=== PATIENT | female | born 1985 ===

== ENCOUNTER 2018-09-17 00:07 | Emergency (ER) | payer SELFPAY ==
[2018-09-17 00:28] VITALS: RESP 18
--- NOTE | 2018-09-17 01:11 | ED PDOC ---
HPI: Skin/Bite Injury Time Seen by Provider: 09/17/18 00:30 Chief Complaint (Nursing): Breast Problem Chief Complaint (Provider): left breast pain History Per: Patient History/Exam Limitations: no limitations Onset/Duration Of Symptoms: Days (3) Current Symptoms Are (Timing): Still Present Quality Of Symptoms: Painful Additional Complaint(s): 33 y/o female presents for evaluation of left breast pain and swelling x 3 days. Associated tactile fevers, states last dose Tylenol was 15:00 yesterday. Patient states she had similar symptoms one month ago (under [id number]) and was admitted here for breast abscess which was drained by surgery. Denies nausea/vomiting, nipple discharge. Past Medical History Reviewed: Historical Data, Nursing Documentation, Vital Signs Vital Signs: Last Vital Signs Temp 98.5 F 09/17/18 00:26 Pulse 81 09/17/18 00:26 Resp 18 09/17/18 00:26 BP 111/60 09/17/18 00:26 Pulse Ox 100 09/17/18 00:26 - Medical History PMH: No Chronic Diseases - Family History Family History: States: No Known Family Hx - Living Arrangements Living Arrangements: With Family - Home Medications Home Medications: Ambulatory Orders Medication Instructions Recorded Amoxicillin/Clavulanate [Augmentin 1 tab PO Q12 #20 tab 09/17/18 875 MG-125 MG] oxyCODONE/Acetaminophen [Percocet 1 ea PO Q6 PRN #10 tab 09/17/18 5/325 mg Tab] - Allergies Allergies/Adverse Reactions: Allergies Allergy/AdvReac Type Severity Reaction Status Date / Time No Known Allergies Allergy Verified 09/17/18 00:26 Review of Systems ROS Statement: Except As Marked, All Systems Reviewed And Found Negative Skin: Positive for: Other (left breast pain) Physical Exam - Reviewed Nursing Documentation Reviewed: Yes Vital Signs Reviewed: Yes - Physical Exam Appears: Positive for: Well, Non-toxic, No Acute Distress Head Exam: Positive for: ATRAUMATIC, NORMAL INSPECTION, NORMOCEPHALIC Skin: Positive for: Rash (Moderate swelling to left breast compared to right, with tenderness to palpate in 9:00-12:00 positions with + erythema, warmth. No fluctuance. No nipple discharge/retraction, orange-peel appearance. Normal- apearing right breast) Eye Exam: Positive for: Normal appearance ENT: Positive for: Normal ENT Inspection Cardiovascular/Chest: Positive for: Regular Rate, Rhythm Respiratory: Positive for: Normal Breath Sounds Gastrointestinal/Abdominal: Positive for: Normal Exam Back: Positive for: Normal Inspection Extremity: Positive for: Normal ROM Neurologic/Psych: Positive for: Alert, Oriented (x3) - Laboratory Results Result Diagrams: 09/17/18 02:11 09/17/18 02:11 - ECG O2 Sat by Pulse Oximetry: 100 - Progress ED Course And Treament: -cbc -cmp -lactic acid -blood cx -Toradol 15mg IV -left breast u/s Ultrasound of the left breast. Indication: Suspected abscess formation. Technique: Real-time ultrasound images were obtained. Findings: 9.1x8.3x6 cm abscess formation is noted in the left breast at the site of the palpable clinical abnormality. Impression: Abscess formation as above IV zosyn dose ordered Patient evaluated by Dr. Garcia, surgical coordinator on-call, bedside I&D performed. Recommends d/c with antibiotics, pain medication and follow up with Dr. Sutton in one week. Disposition - Clinical Impression Clinical Impression: Abscess of breast - Patient ED Disposition Is Patient to be Admitted: No Counseled Patient/Family Regarding: Studies Performed, Diagnosis, Need For Followup, Rx Given - Disposition Referrals: Luis Sutton MD [Staff Provider] - Disposition: Routine/Home Disposition Time: 05:09 Condition: IMPROVED Prescriptions: Amoxicillin/Clavulanate [Augmentin 875 MG-125 MG] 1 tab PO Q12 #20 tab oxyCODONE/Acetaminophen [Percocet 5/325 mg Tab] 1 ea PO Q6 PRN #10 tab PRN Reason: Pain, Severe (8-10) Instructions: Abscess Incision and Drainage Forms: [employer] (Canadian)
[2018-09-17 02:16] LABS: BASO % 0.2 % (0.0-2.0); EOS % 0.6 % (0.0-4.0); HEMOGLOBIN 10.1 g/dL (12.0-16.0); LYMPH # 1.3 K/uL (1.0-4.3); LYMPH % 20.1 % (20.0-40.0); MEAN CELL VOLUME 85.5 fl (81.0-99.0); MEAN CORPUSCULAR HGB CONC 32.8 g/dL (33.0-37.0); MEAN PLATELET VOLUME 9.1 fl (7.2-11.7); MONO # 0.5 K/uL (0.0-0.8); MONO % 8.1 % (0.0-10.0); NEUT # 4.5 K/uL (1.8-7.0); NRBC % 0.1 % (0.0-0.0); RBC 3.62 Mil/uL (3.80-5.20); RED CELL DISTRIBUTION WIDTH 14.2 % (11.5-14.5); WHITE BLOOD COUNT 6.3 K/uL (4.8-10.8)
[2018-09-17 02:23] LABS: ALB/GLOB RATIO 1.2 (1.0-2.1); ALT/SGPT 25 U/L (9-52); AST/SGOT 21 U/L (14-36); BLOOD UREA NITROGEN 16 mg/dl (7-17); CALCIUM 8.8 mg/dL (8.4-10.2); GFR NON-AFRICAN AMERICAN > 60
[2018-09-17] MEDS ORDERED: Piperacillin/Tazobact 3.375 GM in Sodium Chloride 0.9% 100 ML IV ONE (03:21)
[2018-09-17] MEDS ORDERED: HYDROmorphone 0.5 mg/0.5 ml ISec IVP STA (04:05)
[2018-09-17] MEDS ORDERED: Lidocaine 1% Inj (20ml) IJ ONE (04:06)
[2018-09-17] MEDS ORDERED: Piperacillin/Tazobact 3.375 gm Inj IVPB ONE (05:19)
--- NOTE | 2018-09-17 06:13 | PCM.PROC ---
- Incision & Drainage Of Abscess Anesthesia: Lidocaine 2% Used During Procedure: Continuous Pulse Oximetry, Bookstore Clerk, Oxygen Prep Used: Sterile Water, Betadine Procedure: Incised W/Scalpel Blade#: (11), Drained Pus (300cc ), Irrigated Cavity W/Saline, Probed To Break Up Loculations (on 9 o clock position 5cm from the nipple on the L breast), Packed W/Gauze, Cultures Obtained And Sent To Lab
[2018-09-17 06:43] VITALS: BP 100/58; PULSE 62; TEMP 97.8; O2SAT 97
--- NOTE | 2018-09-17 09:58 | US ---
Date of service: 09/17/2018 PROCEDURE: Diagnostic left breast ultrasound examination HISTORY: pain, swelling h/o abscess COMPARISON: Not available TECHNIQUE: Targeted ultrasound examination of left breast performed in the area of palpable abnormality and tenderness, in the medial half of the breast FINDINGS: There is a complex fluid collection measuring 6.0 x 8.3 x 9.1 cm with intermediate level internal echoes and peripheral hypervascularity. Findings consistent with abscess. Consider percutaneous drainage. No solid mass identified. No additional abnormality demonstrated. IMPRESSION: Findings consistent with 9.1 cm abscess in the medial half of left breast. Consider percutaneous drainage. The preliminary findings for this examination were reported by [facility] at 3:19 a.m. on 09/17/2018. There is concurrence of this report with the preliminary findings.
== END 2018-09-17 06:52 | disposition home or self-care (01) ==
LOC: H.ER 00:07
DX: N61.1 Abscess of the breast and nipple (principal)
CPT/HCPCS: 10060; 76641; 80053; 83605; 85025; 87040; 87070; 96374; 96375; 99283; J1885; J2543

== ENCOUNTER 2018-10-18 16:58 | Emergency (ER) | payer SELFPAY ==
[2018-10-18 17:30] VITALS: RESP 18
--- NOTE | 2018-10-18 18:03 | ED PDOC ---
HPI: Skin/Bite Injury Time Seen by Provider: 10/18/18 17:35 Chief Complaint (Nursing): Abnormal Skin Integrity Chief Complaint (Provider): left breast pain and swelling History Per: Patient History/Exam Limitations: no limitations Onset/Duration Of Symptoms: Days Current Symptoms Are (Timing): Still Present Additional Complaint(s): 33 y/o female presents for evaluation of left breast pain and swelling x 1 week. Associated subjective fevers. Patient states she had similar symptoms in August 2018 (under [id number]) and was admitted here for breast abscess which was drained by surgery and was again seen on 09/17/18 and had abscess drainage by surgical consult. She states the breast was soft and redness had gone away but returned over the past week. Denies nausea/vomiting, discharge from breast. States that the pain is increasing and that she just finished her last dose of antibiotics yesterday. The redness is further down than it has been in the past. Denies hx of breast Ca. Past Medical History Reviewed: Historical Data, Nursing Documentation, Vital Signs Vital Signs: Last Vital Signs Temp 98 F 10/18/18 17:28 Pulse 70 10/18/18 17:28 Resp 18 10/18/18 17:28 BP 115/44 L 10/18/18 17:28 Pulse Ox 99 10/18/18 17:28 - Medical History PMH: No Chronic Diseases - Family History Family History: States: Unknown Family Hx - Home Medications Home Medications: Ambulatory Orders Medication Instructions Recorded Amoxicillin/Clavulanate [Augmentin 1 tab PO Q12 #20 tab 09/17/18 875 MG-125 MG] oxyCODONE/Acetaminophen [Percocet 1 ea PO Q6 PRN #10 tab 09/17/18 5/325 mg Tab] Doxycycline Hyclate 100 mg PO BID 14 Days capsule 10/18/18 - Allergies Allergies/Adverse Reactions: Allergies Allergy/AdvReac Type Severity Reaction Status Date / Time No Known Allergies Allergy Verified 10/18/18 17:28 Review of Systems Constitutional: Negative for: Fever, Chills Skin: Positive for: Other (left breast pain, redness and swelling) Physical Exam - Reviewed Nursing Documentation Reviewed: Yes Vital Signs Reviewed: Yes - Physical Exam Skin: Positive for: Rash (Left breast with + erythema and mild edema with orange peel appearance in RLQ of breast with firm induration below nipple extending to 10:00 on Left breast (RUQ). Right breast soft, no erythema, edema, drainage or induration. ) Cardiovascular/Chest: Positive for: Regular Rate, Rhythm Neurologic/Psych: Positive for: Alert, Oriented - Laboratory Results Result Diagrams: 10/18/18 18:16 10/18/18 18:16 - ECG O2 Sat by Pulse Oximetry: 99 Medical Decision Making Medical Decision Making: CBC, CMP Blood cultures Left breast U/S Toradol 15mg IM x 1 Surgery consult Left breast U/S: Inhomogenous fluid collection b/w 5 - 6 o'clock and extends up to 9 o'clock measuring 6.6 x 3.7 x 4.5cm suspicious for an abscess. Consider aspiration and short term f/u study in 1 - 2 months after antibiotic treatment. BIRADS 3: probably benign. Surgery consult performed drainage of abscess and patient to be discharged home on 3rd trial of PO antibiotics with strict return instructions given. Disposition - Clinical Impression Clinical Impression: Abscess of breast - Patient ED Disposition Is Patient to be Admitted: No Discussed With Dr.: Luis Sutton Doctor Will See Patient In The: ED Counseled Patient/Family Regarding: Diagnosis, Need For Followup, Rx Given - Disposition Referrals: [facility] [place]] Luis Sutton MD [Staff Provider] - Disposition: Routine/Home Disposition Time: 20:24 Condition: STABLE Additional Instructions: If you do not see improvement in redness and firmness of Left breast within the next 3 days, return to ER for further evaluation. If you develop fever despite being on antibiotics, return to ER. Otherwise, f/u with Dr. Sutton in her office in 1 week. Prescriptions: Doxycycline Hyclate 100 mg PO BID 14 Days capsule Forms: [employer] (Uruguayan) Print Language: TELUGU
[2018-10-18 18:30] LABS: BASO % 0.4 % (0.0-2.0); EOS # 0.1 K/uL (0.0-0.7); EOS % 1.6 % (0.0-4.0); HEMOGLOBIN 10.4 g/dL (12.0-16.0); LYMPH # 1.6 K/uL (1.0-4.3); LYMPH % 30.4 % (20.0-40.0); MEAN CORPUSCULAR HEMOGLOBIN 27.5 pg (27.0-31.0); MEAN CORPUSCULAR HGB CONC 33.5 g/dL (33.0-37.0); MONO # 0.5 K/uL (0.0-0.8); MONO % 8.8 % (0.0-10.0); NEUT # 3.1 K/uL (1.8-7.0); NEUT % 58.8 % (50.0-75.0); RBC 3.78 Mil/uL (3.80-5.20); RED CELL DISTRIBUTION WIDTH 14.6 % (11.5-14.5); WHITE BLOOD COUNT 5.3 K/uL (4.8-10.8)
[2018-10-18 18:36] LABS: ALB/GLOB RATIO 1.2 (1.0-2.1); ALBUMIN 4.3 g/dL (3.5-5.0); ALT/SGPT 27 U/L (9-52); AST/SGOT 23 U/L (14-36); BLOOD UREA NITROGEN 16 mg/dl (7-17); CALCIUM 9.4 mg/dL (8.4-10.2); GFR NON-AFRICAN AMERICAN > 60
[2018-10-18] MEDS ORDERED: Lidocaine 1% Inj (20ml) ONE (19:33)
--- NOTE | 2018-10-18 20:10 | CP.PCM.CON ---
History of Present Illness - History of Present Illness History of Present Illness: Surgery: Dr. Garcia Reason for consult: recurrent Left breast abscess CC: L breast pain and swelling HPI: Patient is a 33 y/o female w/ pmhx of breast abscess s/p I&D in September 2018 who presents with recurrent swelling and pain to the Left breast in same location of prior abscess. She states she has noticed this worsening over the weekend. She reports usbjective fevers but low grade. She states she has been taking bactrim for the past 3 weeks and just before took a full course of augmentin. While she was on the abx the symptoms improved but never completely resolved. She is not currently breast feeding. She denies discharge from the breast or the nipple. No history of prior mammogram. Last abscess culture was + for cornyebacterium species, no sensitivity was done. PMH: breast abscess, PSH: L breast I&D Social: denies etoh, tobacco, or drug use Family: denies family history or breast, ovarian, prostate or colon ca Review of Systems - Constitutional Constitutional: Fever. absent: Anorexia, Chills - EENT Eyes: absent: Blurred Vision, Change in Vision Ears: absent: Disequilibrium, Dizziness Nose/Mouth/Throat: absent: Nasal Congestion, Neck Pain, Neck Mass - Breasts Breasts: Pain, Skin Changes, Swelling. absent: Mass, Nipple Discharge, Nipple Inversion - Cardiovascular Cardiovascular: absent: Chest Pain, Dyspnea, Syncope - Respiratory Respiratory: absent: Cough, Hemoptysis - Gastrointestinal Gastrointestinal: absent: Abdominal Pain, Bloating, Vomiting - Genitourinary Genitourinary: absent: Hematuria, Pyuria - Musculoskeletal Musculoskeletal: absent: Neck Pain, Tingling - Integumentary Integumentary: absent: Acne - Neurological Neurological: absent: Tingling, Weakness - Psychiatric Psychiatric: absent: Confusion, Depression - Endocrine Endocrine: absent: Polyphagia, Polyuria - Hematologic/Lymphatic Hematologic: absent: Easy Bleeding, Easy Bruising Past Patient History - Infectious Disease Hx of Infectious Diseases: None - Past Medical History & Family History Past Medical History?: Yes Past Family History: Reviewed and not pertinent - Past Social History Smoking Status: Never Smoked - PSYCHIATRIC Hx Substance Use: No - SURGICAL HISTORY Other/Comment: breast abscess Meds Home Medications: Home Medication List Medication Instructions Recorded Confirmed Type Doxycycline Hyclate 100 mg PO BID 14 Days capsule 10/18/18 Rx Allergies/Adverse Reactions: Allergies Allergy/AdvReac Type Severity Reaction Status Date / Time No Known Allergies Allergy Verified 10/18/18 17:28 Physical Exam - Constitutional Appears: Non-toxic, No Acute Distress - Head Exam Head Exam: ATRAUMATIC, NORMOCEPHALIC - Eye Exam Eye Exam: EOMI, Normal appearance - ENT Exam ENT Exam: Mucous Membranes Moist - Neck Exam Neck exam: Negative for: Lymphadenopathy - Respiratory Exam Respiratory Exam: NORMAL BREATHING PATTERN. absent: Chest Wall Tenderness, Respiratory Distress - Cardiovascular Exam Cardiovascular Exam: REGULAR RHYTHM. absent: Tachycardia - GI/Abdominal Exam GI & Abdominal Exam: Soft. absent: Distended, Tenderness - Extremities Exam Extremities exam: Positive for: normal inspection. Negative for: calf tenderness - Neurological Exam Neurological exam: Alert, Oriented x3 - Psychiatric Exam Psychiatric exam: Normal Affect, Normal Mood - Skin Skin Exam: Warm - Expanded Skin Exam Expanded Type of lesion: Abscess Distribution of rash: Chest (Left breast ) Description of Rash: Erythematous, Size (quarter, fluctuant ), Swelling, Tenderness Results - Vital Signs Recent Vital Signs: Last Vital Signs Temp 98 F 10/18/18 17:28 Pulse 70 10/18/18 17:28 Resp 18 10/18/18 17:28 BP 115/44 L 10/18/18 17:28 Pulse Ox 99 10/18/18 18:12 - Labs Result Diagrams: 10/18/18 18:16 10/18/18 18:16 Labs: Laboratory Results - last 24 hr 10/18/18 10/18/18 18:16 18:16 WBC 5.3 RBC 3.78 L Hgb 10.4 L Hct 30.9 L MCV 82.0 D MCH 27.5 MCHC 33.5 RDW 14.6 H Plt Count 225 MPV 9.0 Neut % (Auto) 58.8 Lymph % (Auto) 30.4 [place] % (Auto) 8.8 Eos % (Auto) 1.6 Baso % (Auto) 0.4 Neut # (Auto) 3.1 Lymph # (Auto) 1.6 [place] # (Auto) 0.5 Eos # (Auto) 0.1 Baso # (Auto) 0.0 Sodium 140 Potassium 3.8 Chloride 102 Carbon Dioxide 27 Anion Gap 15 BUN 16 Creatinine 0.7 Est GFR ( Amer) > 60 Est GFR (Non-Af Amer) > 60 Random Glucose 106 H Calcium 9.4 Total Bilirubin < 0.1 L AST 23 ALT 27 Alkaline Phosphatase 75 Total Protein 8.1 Albumin 4.3 Globulin 3.7 Albumin/Globulin Ratio 1.2 Assessment & Plan - Assessment and Plan (Free Text) Assessment: 33 y/o female w/ recurrent L breast abscess Plan: -bedside abscess aspiration performed- patient tolerated well -recommend Vibramycin 100mg PO BID for 2 weeks -if symptoms worsen over the next 2-3 days return to ER -if symptoms improved call office for appointment with Dr. Garcia in 1 week -f/u fluid culture -well supporting bra -keep area clean and dry -d/w Dr. Garcia and HILARIA Hauser AKWhite PGY4
--- NOTE | 2018-10-18 20:19 | PCM.PROC ---
- Incision & Drainage Of Abscess Anesthesia: Lidocaine 1% Used During Procedure: Continuous Pulse Oximetry (Procedure: abscess aspiration ) Procedure: Incised W/Scalpel Blade#: (Procedure: Breast aspiration. 18 gauge needle used to drain approximated 40cc of rust colored purulent fluid.), Drained Pus, Cultures Obtained And Sent To Lab (patient tolerated well. Band-aid placed over aspiration site. )
[2018-10-18 20:26] VITALS: BP 115/68; PULSE 66; TEMP 98.3
[2018-10-18 20:51] VITALS: O2SAT 99
--- NOTE | 2018-10-19 10:37 | US ---
Date of service: 10/18/2018 HISTORY: Reason for exam: No family history of breast cancer. No personal history of breast cancer. No current complaints. COMPARISON: 09/17/2018 TECHNIQUE: BREAST LIMITED LT FINDINGS: LEFT BREAST: Since the prior examination, there is interval decrease in size of complex fluid collection with intermediate level internal echoes and mild peripheral increased vascularity at 5 to 9 o'clock position, now measuring 6.6 x 3.7 x 4.5 cm, previously measured 6.0 x 8.3 x 9.1 cm. IMPRESSION: Interval in mild decrease in size of known abscess at 5 to 9:00 o'clock position now measuring 6.6 x 3.7 x 4.5 cm. Follow-up after management is recommended to ensure complete resolution. BIRAD: BIRADS 3 Probably Benign Recommendation: Short-interval 6-month follow-up A preliminary report was provided by [facility].
== END 2018-10-18 20:24 | disposition home or self-care (01) ==
LOC: H.ER 16:58
DX: N61.1 Abscess of the breast and nipple (principal); Z98.890 Other specified postprocedural states
CPT/HCPCS: 10060; 76642; 80053; 81025; 85025; 87040; 87070; 96372; 99282; J1885